=== PATIENT | male | born 1980 | race Caucasian/White ===

== ENCOUNTER 2021-09-30 20:19 | Inpatient (IN) ==
[~2021-09-30 20:19] MED LIST: THIAMINE HCL 100 MG in SYRINGE 9 ML IV SCH
[2021-09-30] MEDS ORDERED: MULTI-VITAMIN INFUSION 10 ML, THIAMINE HCL 100 MG, FOLIC ACID 1 MG in SODIUM CHLORIDE 0... IV ONE (20:46)
--- NOTE | 2021-09-30 20:46 | Emergency Department Note ---
Impression & Plan Alcohol withdrawal delirium, Elevated LFTs, Acute hyponatremia, Visual hallucinations ED Provider Note Name: JUSTINE STEEL Age: 41 Sex: M Arrives Via: Walk-In Informant: Patient, Brother ED Provider: Jimenez Monroy MD Chief Complaint: Hallucinations Impression: As per impressions above Medical Decision Makin-year-old gentleman with a history of hypothyroidism, anxiety/depression, alcoholism arrives for evaluation of increasing hallucinations over the last week or so. On evaluation patient does not appear significantly intoxicated I will note that his alcohol level returned elevated. He admits he drinks a large amount of vodka every day and has been doing so for quite some time now. CT of the head was obtained which is fortunately negative. Labs reveal mildly elevated LFTs but no elevated ammonia. His sodium is a bit low consistent with regular alcohol use. I am suspicious that he is hallucinating as his alcohol levels dropped and that he drinks something it goes away. That said just while being here patient is becoming more tachycardic and hypertensive. I feel he is likely getting near the point where he will have DTs/seizures and I stressed the need for helping him at which point he is willing to stay after considerable discussion with his brother at bedside as well. Initially patient was given a banana bag with thiamine. He was given Ativan later on in the stay. Hospitalist consulted for further management of patient. EKG does have a prolonged QTC with some abnormal ST however troponin is normal. Mag is a bit low. Prior Medical Record and Triage/Nursing Notes reviewed by Me Additional history obtained from chart Differentials:Alcohol intoxication, DTs, ICH, tumor, toxicologic, infection, hypoglycemia, electrolyte abnormalities, cardiac sources, intracerebral event, neurologic, trauma, as well as other pathologies. Vital Signs: reviewed and remarkable for HTN, Tachy Interventions: Banana bag 1 L IV, Ativan 2 mg IV Labs:Reviewed and remarkable for natremia, mildly elevated LFTs, elevated a lcohol level Imaging:CT of the head as per radiology no acute findings EKG:Per My Interpretation: Indication Hallucinations: Sinus Tach 104 bpm, qtc [address] abnormalities. No Ectopy. No Ischemia. No previous for comparison. Cardiac/Tele Monitoring: Cardiac Monitoring: An Order was placed for continuous cardiac monitoring. The monitor shows a rate of 105 with a sinus tach rhythm. Consults:Dr Sarah MARION Hospitalist Plan: Disposition:Hospitalization. Condition: Fair History of Present Illness:41-year-old gentleman arrives for evaluation of hallucinations. Patient with several weeks of increasing hallucinations. He seeing things that just are not there. From collars to children to people w alking around. He does note that at times he has to change what he is doing because he sees something and then its not there. He is even stopped his car suddenly because he thought he saw a car in front of them. Patient denies any headache, neck pain, chest pain, double vision, palpitations, shortness of breath, abdominal pain, back, urinary changes, diarrhea, leg swelling, or shows no other signs or symptoms. He does admit that he drinks about a third of a handle of vodka daily. This is been ongoing from last 10 years. It has been several years since he actually went a day without drinking. Denies any falls, trauma, injuries. Does periodically get headaches but does not not have any headache currently. Denies any drug ingestions. Denies any thing makes better or worse. No medications prior to arrival. No recent changes to his medications ROS: See above HPI for pertinent positives & negatives. A total of 10 systems reviewed and were otherwise negative. 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 EYES: No scleral icterus, unremarkable pupils. Mild jaundice to eyes ENT: Mucous membranes moist, no nasal congestion. NECK: No masses appreciated, nomeningismus, trachea is midline. RESPIRATORY: No dyspnea. Clear to auscultation and equal bilaterally. No wheeze, no rhonchi. CARDIOVASCULAR: Tachy.No murmurs, rubs, gallops appreciated. GASTROINTESTINAL: Abdomen soft, non-tender, no peritonitis.Bowel sounds positive.No masses appreciated. BACK: No midline tenderness, no CVA tenderness EXTREMITIES: Normal motion all extremities, no cyanosis, no edema. NEUROLOGIC: Alert and oriented, no acute motor or sensory deficits, no focal weakness, cranial nerves grossly intact. SKIN: No rash, no jaundice, no diaphoresis. PSYCH: Appropriate, denies suicidal ideation GCS: 15 ED Course: Times/Reassessments: Patient did start getting more and more tachycardic hypertensive thus Ativan was given. He is agreeable to staying a bit hesitant of this. Jimenez Monroy MD Past Med/Surg History Social History Smoking Status: Current every day smoker Preferred Language: Turkish Feels Safe at Home: Yes Allergies Allergies Allergy/AdvReac Type Severity Reaction Status Date / Time No Known Allergies Allergy Mild Unverified 06/06/07 19:11 Home Meds Home Medications Medication Instructions Recorded Confirmed None (Patient States No Home Meds) ##0 06/06/07 Results & Data (ED) Vital Signs Vital Signs - 24 hr 09/30/21 20:21 Temperature 36.5 C Temperature Source Temporal Artery Scan Pulse Rate 102 H Pulse Rhythm Regular Pulse Strength Normal Respiratory Rate 18 Respiratory Effort / Characteristics Non-Labored Spontaneous Respiratory Depth Normal Respiratory Pattern Regular Blood Pressure 162/121 H Blood Pressure Mean 134 Blood Pressure Position Sitting Pulse Oximetry 98 Oxygen Delivery Method Room Air Sepsis Recent Fever Within 48 Hours No Sepsis New/Unexplained Change in Mental Status N/A Sepsis Action Taken by Nursing No Action Required Laboratory Data Result diagrams: 09/30/21 21:18 09/30/21 23:35 Lab Results 09/30/21 09/30/21 09/30/21 Range/Units 21:18 21:18 21:18 WBC 6.87 (4.8-10.8) K/ul RBC 3.71 L (4.63-6.08) M/uL Hgb 14.3 (14.0-18.0) g/dl Hct 38.2 L (40.1-51.0) % MCV 103.0 H (80.0-100.0) fL MCH 38.5 H (25.0-34.0) pg MCHC 37.4 H (32.0-36.0) g/dL RDW Std Deviation 44.6 (36.4-46.3) fL RDW Coeff of Kirk 11.8 (11.5-14.5) % Plt Count 264 (130-400) K/uL MPV 9.3 L (9.4-12.4) fL Neutrophils % (Manual) 69 % Lymphocytes % (Manual) 23 % Monocytes % (Manual) 4 % Eosinophils % (Manual) 2 % Basophils % (Manual) 2 % Metamyelocytes % (Man) 1 % Neutrophils # (Manual) 4.74 (1.4-6.5) K/uL Total Absolute Neuts 4.74 (1.4-6.5) K/uL Lymphocytes # (Manual) 1.58 (1.2-3.4) K/uL Total Abs Lymphocytes 1.58 (1.2-3.4) K/uL Monocytes # (Manual) 0.27 (0.24-0.82) K/uL Eosinophils # (Manual) 0.14 (0-0.50) K/uL Basophils # (Manual) 0.14 (0-0.2) K/uL Metamyelocytes # (Man) 0.07 H (0-0) K/uL PT (9.0-12.0) Seconds INR (0.9-1.1) Sodium (136-145) mmol/L Potassium (3.5-5.1) mmol/L Chloride (98-107) mmol/L Carbon Dioxide (21-32) mmol/L Anion Gap (3-11) BUN (6-23) mg/dl Creatinine (0.6-1.4) mg/dl Est Cr Clr Drug Dosing ml/min Est GFR ( Amer) ml/min Est GFR (Non-Af Amer) ml/min BUN/Creatinine Ratio (10-20) Glucose (70-99(Fasting)) mg/dl Osmolality (280-300) mOsm/kg Lactate 3.0 H* (0.4-2.0) mmol/L Calcium (8.5-10.1) mg/dl Magnesium (1.7-2.4) mg/dl Total Bilirubin (0.2-1.0) mg/dl AST (13-39) U/L ALT (7-52) U/L Alkaline Phosphatase (34-104) U/L Ammonia 20.0 (18-72) umol/L Troponin I High Sens (0-20) pg/ml Total Protein (6.0-8.3) gm/dl Albumin (3.4-5.0) gm/dl Globulin (2.5-4.0) gm/dl Albumin/Globulin Ratio (0.9-2) TSH (0.300-4.500) uIu/ml Free T4 (0.61-1.60) ng/dl Urine Color Urine Appearance (Clear) Urine pH (4.5-7.5) Ur Specific [place] (1.000-1.030) Urine Protein (Negative) Urine Glucose (UA) (Negative) Urine Ketones (Negative) Urine Blood (Negative) Urine Nitrite (Negative) Urine Bilirubin (Negative) Urine Urobilinogen (Negative) Ur Leukocyte Esterase (Negative) Urine Osmolality (500-800) mOsm/kg Ur Random Sodium mmol/L Salicylates (3.0-30) mg/dl Urine Opiates Screen (Neg) Ur Methadone, Qual (Neg) Acetaminophen (10-30) ug/ml Urine Barbiturates (Neg) Ur Phencyclidine (PCP) (Neg) U Amphetamin/Meth Scrn (Neg) MDMA (Ecstasy) Screen (Neg) U Benzodiazepines Scrn (Neg) Ur Cocaine Metabolite (Neg) U Marijuana (THC) Screen (Neg) Ethyl Alcohol mg/dL (<10.0) mg/dl SARS-CoV-2, RNA, NAAT (NEGATIVE) 09/30/21 09/30/21 09/30/21 Range/Units 21:18 21:18 21:18 WBC (4.8-10.8) K/ul RBC (4.63-6.08) M/uL Hgb (14.0-18.0) g/dl Hct (40.1-51.0) % MCV (80.0-100.0) fL MCH (25.0-34.0) pg MCHC (32.0-36.0) g/dL RDW Std Deviation (36.4-46.3) fL RDW Coeff of Kirk (11.5-14.5) % Plt Count (130-400) K/uL MPV (9.4-12.4) fL Neutrophils % (Manual) % Lymphocytes % (Manual) % Monocytes % (Manual) % Eosinophils % (Manual) % Basophils % (Manual) % Metamyelocytes % (Man) % Neutrophils # (Manual) (1.4-6.5) K/uL Total Absolute Neuts (1.4-6.5) K/uL Lymphocytes # (Manual) (1.2-3.4) K/uL Total Abs Lymphocytes (1.2-3.4) K/uL Monocytes # (Manual) (0.24-0.82) K/uL Eosinophils # (Manual) (0-0.50) K/uL Basophils # (Manual) (0-0.2) K/uL Metamyelocytes # (Man) (0-0) K/uL PT (9.0-12.0) Seconds INR (0.9-1.1) Sodium 124 L (136-145) mmol/L Potassium 3.4 L (3.5-5.1) mmol/L Chloride 86 L (98-107) mmol/L Carbon Dioxide 24 (21-32) mmol/L Anion Gap 14 H (3-11) BUN 6 (6-23) mg/dl Creatinine 0.76 (0.6-1.4) mg/dl Est Cr Clr Drug Dosing 157.9 ml/min Est GFR ( Amer) 129.5 ml/min Est GFR (Non-Af Amer) 111.7 ml/min BUN/Creatinine Ratio 7.9 L (10-20) Glucose 85 (70-99(Fasting)) mg/dl Osmolality (280-300) mOsm/kg Lactate (0.4-2.0) mmol/L Calcium 9.8 (8.5-10.1) mg/dl Magnesium (1.7-2.4) mg/dl Total Bilirubin 1.1 H (0.2-1.0) mg/dl AST 52 H (13-39) U/L ALT 72 H (7-52) U/L Alkaline Phosphatase 54 (34-104) U/L Ammonia (18-72) umol/L Troponin I High Sens 2.8 (0-20) pg/ml Total Protein 7.4 (6.0-8.3) gm/dl Albumin 4.6 (3.4-5.0) gm/dl Globulin 2.8 (2.5-4.0) gm/dl Albumin/Globulin Ratio 1.6 (0.9-2) TSH 6.367 H (0.300-4.500) uIu/ml Free T4 1.31 (0.61-1.60) ng/dl Urine Color Urine Appearance (Clear) Urine pH (4.5-7.5) Ur Specific [place] (1.000-1.030) Urine Protein (Negative) Urine Glucose (UA) (Negative) Urine Ketones (Negative) Urine Blood (Negative) Urine Nitrite (Negative) Urine Bilirubin (Negative) Urine Urobilinogen (Negative) Ur Leukocyte Esterase (Negative) Urine Osmolality (500-800) mOsm/kg Ur Random Sodium mmol/L Salicylates < 3.0 L (3.0-30) mg/dl Urine Opiates Screen (Neg) Ur Methadone, Qual (Neg) Acetaminophen < 3 L (10-30) ug/ml Urine Barbiturates (Neg) Ur Phencyclidine (PCP) (Neg) U Amphetamin/Meth Scrn (Neg) MDMA (Ecstasy) Screen (Neg) U Benzodiazepines Scrn (Neg) Ur Cocaine Metabolite (Neg) U Marijuana (THC) Screen (Neg) Ethyl Alcohol mg/dL (<10.0) mg/dl SARS-CoV-2, RNA, NAAT (NEGATIVE) 09/30/21 09/30/21 09/30/21 Range/Units 21:18 21:18 21:18 WBC (4.8-10.8) K/ul RBC (4.63-6.08) M/uL Hgb (14.0-18.0) g/dl Hct (40.1-51.0) % MCV (80.0-100.0) fL MCH (25.0-34.0) pg MCHC (32.0-36.0) g/dL RDW Std Deviation (36.4-46.3) fL RDW Coeff of Kirk (11.5-14.5) % Plt Count (130-400) K/uL MPV (9.4-12.4) fL Neutrophils % (Manual) % Lymphocytes % (Manual) % Monocytes % (Manual) % Eosinophils % (Manual) % Basophils % (Manual) % Metamyelocytes % (Man) % Neutrophils # (Manual) (1.4-6.5) K/uL Total Absolute Neuts (1.4-6.5) K/uL Lymphocytes # (Manual) (1.2-3.4) K/uL Total Abs Lymphocytes (1.2-3.4) K/uL Monocytes # (Manual) (0.24-0.82) K/uL Eosinophils # (Manual) (0-0.50) K/uL Basophils # (Manual) (0-0.2) K/uL Metamyelocytes # (Man) (0-0) K/uL PT (9.0-12.0) Seconds INR (0.9-1.1) Sodium (136-145) mmol/L Potassium (3.5-5.1) mmol/L Chloride (98-107) mmol/L Carbon Dioxide (21-32) mmol/L Anion Gap (3-11) BUN (6-23) mg/dl Creatinine (0.6-1.4) mg/dl Est Cr Clr Drug Dosing ml/min Est GFR ( Amer) ml/min Est GFR (Non-Af Amer) ml/min BUN/Creatinine Ratio (10-20) Glucose (70-99(Fasting)) mg/dl Osmolality (280-300) mOsm/kg Lactate (0.4-2.0) mmol/L Calcium (8.5-10.1) mg/dl Magnesium (1.7-2.4) mg/dl Total Bilirubin (0.2-1.0) mg/dl AST (13-39) U/L ALT (7-52) U/L Alkaline Phosphatase (34-104) U/L Ammonia (18-72) umol/L Troponin I High Sens (0-20) pg/ml Total Protein (6.0-8.3) gm/dl Albumin (3.4-5.0) gm/dl Globulin (2.5-4.0) gm/dl Albumin/Globulin Ratio (0.9-2) TSH (0.300-4.500) uIu/ml Free T4 (0.61-1.60) ng/dl Urine Color Yellow Urine Appearance Clear (Clear) Urine pH 6.5 (4.5-7.5) Ur Specific [place] 1.004 (1.000-1.030) Urine Protein Negative (Negative) Urine Glucose (UA) Negative (Negative) Urine Ketones Trace H (Negative) Urine Blood Negative (Negative) Urine Nitrite Negative (Negative) Urine Bilirubin Negative (Negative) Urine Urobilinogen Negative (Negative) Ur Leukocyte Esterase Negative (Negative) Urine Osmolality (500-800) mOsm/kg Ur Random Sodium mmol/L Salicylates (3.0-30) mg/dl Urine Opiates Screen Neg (Neg) Ur Methadone, Qual Neg (Neg) Acetaminophen (10-30) ug/ml Urine Barbiturates Neg (Neg) Ur Phencyclidine (PCP) Neg (Neg) U Amphetamin/Meth Scrn Neg (Neg) MDMA (Ecstasy) Screen Neg (Neg) U Benzodiazepines Scrn Neg (Neg) Ur Cocaine Metabolite Neg (Neg) U Marijuana (THC) Screen Neg (Neg) Ethyl Alcohol mg/dL 215.9 H (<10.0) mg/dl SARS-CoV-2, RNA, NAAT (NEGATIVE) 09/30/21 09/30/21 09/30/21 Range/Units 21:18 21:18 21:18 WBC (4.8-10.8) K/ul RBC (4.63-6.08) M/uL Hgb (14.0-18.0) g/dl Hct (40.1-51.0) % MCV (80.0-100.0) fL MCH (25.0-34.0) pg MCHC (32.0-36.0) g/dL RDW Std Deviation (36.4-46.3) fL RDW Coeff of Kirk (11.5-14.5) % Plt Count (130-400) K/uL MPV (9.4-12.4) fL Neutrophils % (Manual) % Lymphocytes % (Manual) % Monocytes % (Manual) % Eosinophils % (Manual) % Basophils % (Manual) % Metamyelocytes % (Man) % Neutrophils # (Manual) (1.4-6.5) K/uL Total Absolute Neuts (1.4-6.5) K/uL Lymphocytes # (Manual) (1.2-3.4) K/uL Total Abs Lymphocytes (1.2-3.4) K/uL Monocytes # (Manual) (0.24-0.82) K/uL Eosinophils # (Manual) (0-0.50) K/uL Basophils # (Manual) (0-0.2) K/uL Metamyelocytes # (Man) (0-0) K/uL PT 10.8 (9.0-12.0) Seconds INR 1.0 (0.9-1.1) Sodium (136-145) mmol/L Potassium (3.5-5.1) mmol/L Chloride (98-107) mmol/L Carbon Dioxide (21-32) mmol/L Anion Gap (3-11) BUN (6-23) mg/dl Creatinine (0.6-1.4) mg/dl Est Cr Clr Drug Dosing ml/min Est GFR ( Amer) ml/min Est GFR (Non-Af Amer) ml/min BUN/Creatinine Ratio (10-20) Glucose (70-99(Fasting)) mg/dl Osmolality 311 H (280-300) mOsm/kg Lactate (0.4-2.0) mmol/L Calcium (8.5-10.1) mg/dl Magnesium 1.5 L (1.7-2.4) mg/dl Total Bilirubin (0.2-1.0) mg/dl AST (13-39) U/L ALT (7-52) U/L Alkaline Phosphatase (34-104) U/L Ammonia (18-72) umol/L Troponin I High Sens (0-20) pg/ml Total Protein (6.0-8.3) gm/dl Albumin (3.4-5.0) gm/dl Globulin (2.5-4.0) gm/dl Albumin/Globulin Ratio (0.9-2) TSH (0.300-4.500) uIu/ml Free T4 (0.61-1.60) ng/dl Urine Color Urine Appearance (Clear) Urine pH (4.5-7.5) Ur Specific [place] (1.000-1.030) Urine Protein (Negative) Urine Glucose (UA) (Negative) Urine Ketones (Negative) Urine Blood (Negative) Urine Nitrite (Negative) Urine Bilirubin (Negative) Urine Urobilinogen (Negative) Ur Leukocyte Esterase (Negative) Urine Osmolality (500-800) mOsm/kg Ur Random Sodium mmol/L Salicylates (3.0-30) mg/dl Urine Opiates Screen (Neg) Ur Methadone, Qual (Neg) Acetaminophen (10-30) ug/ml Urine Barbiturates (Neg) Ur Phencyclidine (PCP) (Neg) U Amphetamin/Meth Scrn (Neg) MDMA (Ecstasy) Screen (Neg) U Benzodiazepines Scrn (Neg) Ur Cocaine Metabolite (Neg) U Marijuana (THC) Screen (Neg) Ethyl Alcohol mg/dL (<10.0) mg/dl SARS-CoV-2, RNA, NAAT (NEGATIVE) 09/30/21 09/30/21 09/30/21 Range/Units 21:18 21:18 23:30 WBC (4.8-10.8) K/ul RBC (4.63-6.08) M/uL Hgb (14.0-18.0) g/dl Hct (40.1-51.0) % MCV (80.0-100.0) fL MCH (25.0-34.0) pg MCHC (32.0-36.0) g/dL RDW Std Deviation (36.4-46.3) fL RDW Coeff of Kirk (11.5-14.5) % Plt Count (130-400) K/uL MPV (9.4-12.4) fL Neutrophils % (Manual) % Lymphocytes % (Manual) % Monocytes % (Manual) % Eosinophils % (Manual) % Basophils % (Manual) % Metamyelocytes % (Man) % Neutrophils # (Manual) (1.4-6.5) K/uL Total Absolute Neuts (1.4-6.5) K/uL Lymphocytes # (Manual) (1.2-3.4) K/uL Total Abs Lymphocytes (1.2-3.4) K/uL Monocytes # (Manual) (0.24-0.82) K/uL Eosinophils # (Manual) (0-0.50) K/uL Basophils # (Manual) (0-0.2) K/uL Metamyelocytes # (Man) (0-0) K/uL PT (9.0-12.0) Seconds INR (0.9-1.1) Sodium (136-145) mmol/L Potassium (3.5-5.1) mmol/L Chloride (98-107) mmol/L Carbon Dioxide (21-32) mmol/L Anion Gap (3-11) BUN (6-23) mg/dl Creatinine (0.6-1.4) mg/dl Est Cr Clr Drug Dosing ml/min Est GFR ( Amer) ml/min Est GFR (Non-Af Amer) ml/min BUN/Creatinine Ratio (10-20) Glucose (70-99(Fasting)) mg/dl Osmolality (280-300) mOsm/kg Lactate (0.4-2.0) mmol/L Calcium (8.5-10.1) mg/dl Magnesium (1.7-2.4) mg/dl Total Bilirubin (0.2-1.0) mg/dl AST (13-39) U/L ALT (7-52) U/L Alkaline Phosphatase (34-104) U/L Ammonia (18-72) umol/L Troponin I High Sens (0-20) pg/ml Total Protein (6.0-8.3) gm/dl Albumin (3.4-5.0) gm/dl Globulin (2.5-4.0) gm/dl Albumin/Globulin Ratio (0.9-2) TSH (0.300-4.500) uIu/ml Free T4 (0.61-1.60) ng/dl Urine Color Urine Appearance (Clear) Urine pH (4.5-7.5) Ur Specific [place] (1.000-1.030) Urine Protein (Negative) Urine Glucose (UA) (Negative) Urine Ketones (Negative) Urine Blood (Negative) Urine Nitrite (Negative) Urine Bilirubin (Negative) Urine Urobilinogen (Negative) Ur Leukocyte Esterase (Negative) Urine Osmolality 133 L (500-800) mOsm/kg Ur Random Sodium 16 mmol/L Salicylates (3.0-30) mg/dl Urine Opiates Screen (Neg) Ur Methadone, Qual (Neg) Acetaminophen (10-30) ug/ml Urine Barbiturates (Neg) Ur Phencyclidine (PCP) (Neg) U Amphetamin/Meth Scrn (Neg) MDMA (Ecstasy) Screen (Neg) U Benzodiazepines Scrn (Neg) Ur Cocaine Metabolite (Neg) U Marijuana (THC) Screen (Neg) Ethyl Alcohol mg/dL (<10.0) mg/dl SARS-CoV-2, RNA, NAAT NEGATIVE (NEGATIVE) 09/30/21 09/30/21 Range/Units 23:35 23:35 WBC (4.8-10.8) K/ul RBC (4.63-6.08) M/uL Hgb (14.0-18.0) g/dl Hct (40.1-51.0) % MCV (80.0-100.0) fL MCH (25.0-34.0) pg MCHC (32.0-36.0) g/dL RDW Std Deviation (36.4-46.3) fL RDW Coeff of Kirk (11.5-14.5) % Plt Count (130-400) K/uL MPV (9.4-12.4) fL Neutrophils % (Manual) % Lymphocytes % (Manual) % Monocytes % (Manual) % Eosinophils % (Manual) % Basophils % (Manual) % Metamyelocytes % (Man) % Neutrophils # (Manual) (1.4-6.5) K/uL Total Absolute Neuts (1.4-6.5) K/uL Lymphocytes # (Manual) (1.2-3.4) K/uL Total Abs Lymphocytes (1.2-3.4) K/uL Monocytes # (Manual) (0.24-0.82) K/uL Eosinophils # (Manual) (0-0.50) K/uL Basophils # (Manual) (0-0.2) K/uL Metamyelocytes # (Man) (0-0) K/uL PT (9.0-12.0) Seconds INR (0.9-1.1) Sodium 127 L (136-145) mmol/L Potassium (3.5-5.1) mmol/L Chloride (98-107) mmol/L Carbon Dioxide (21-32) mmol/L Anion Gap (3-11) BUN (6-23) mg/dl Creatinine (0.6-1.4) mg/dl Est Cr Clr Drug Dosing ml/min Est GFR ( Amer) ml/min Est GFR (Non-Af Amer) ml/min BUN/Creatinine Ratio (10-20) Glucose (70-99(Fasting)) mg/dl Osmolality (280-300) mOsm/kg Lactate 2.6 H* (0.4-2.0) mmol/L Calcium (8.5-10.1) mg/dl Magnesium (1.7-2.4) mg/dl Total Bilirubin (0.2-1.0) mg/dl AST (13-39) U/L ALT (7-52) U/L Alkaline Phosphatase (34-104) U/L Ammonia (18-72) umol/L Troponin I High Sens (0-20) pg/ml Total Protein (6.0-8.3) gm/dl Albumin (3.4-5.0) gm/dl Globulin (2.5-4.0) gm/dl Albumin/Globulin Ratio (0.9-2) TSH (0.300-4.500) uIu/ml Free T4 (0.61-1.60) ng/dl Urine Color Urine Appearance (Clear) Urine pH (4.5-7.5) Ur Specific [place] (1.000-1.030) Urine Protein (Negative) Urine Glucose (UA) (Negative) Urine Ketones (Negative) Urine Blood (Negative) Urine Nitrite (Negative) Urine Bilirubin (Negative) Urine Urobilinogen (Negative) Ur Leukocyte Esterase (Negative) Urine Osmolality (500-800) mOsm/kg Ur Random Sodium mmol/L Salicylates (3.0-30) mg/dl Urine Opiates Screen (Neg) Ur Methadone, Qual (Neg) Acetaminophen (10-30) ug/ml Urine Barbiturates (Neg) Ur Phencyclidine (PCP) (Neg) U Amphetamin/Meth Scrn (Neg) MDMA (Ecstasy) Screen (Neg) U Benzodiazepines Scrn (Neg) Ur Cocaine Metabolite (Neg) U Marijuana (THC) Screen (Neg) Ethyl Alcohol mg/dL (<10.0) mg/dl SARS-CoV-2, RNA, NAAT (NEGATIVE) Administered Medications Discontinued Medications Famotidine (Famotidine 20 Mg Tab) 20 mg PO NOW ONE Stop: 09/30/21 23:01 Last Admin: 09/30/21 23:13 Dose: 20 mg Documented By: EVIE Gabapentin (Gabapentin 600 Mg Tab) 1,200 mg PO NOW STA Stop: 09/30/21 23:00 Last Admin: 09/30/21 23:13 Dose: 1,200 mg Documented By: EVIE Multivitamins 10 ml/ Thiamine HCl 100 mg/ Folic Acid 1 mg/Sodium Chloride 1,011.2 mls @ 1,011.2 mls/hr IV .Q1H ONE Stop: 09/30/21 21:45 Last Infusion: 09/30/21 23:18 Dose: 0 mls/hr Documented By: Admin: 09/30/21 22:06 Dose: 1,011.2 mls/hr Documented By: EVIE Thiamine HCl 100 mg/ Syringe 10 mls @ 2 mls/min IV QAM NAVARRO Stop: 10/30/21 08:59 Last Admin: 09/30/21 23:19 Dose: Not Given Documented By: EVIE Lisinopril (Lisinopril 20 Mg Tab) 20 mg PO NOW STA Stop: 09/30/21 22:35 Last Admin: 09/30/21 23:07 Dose: Not Given Documented By: EVIE Lorazepam (Lorazepam 2 Mg/1 Ml Vial) 2 mg IV NOW STA; Protocol Stop: 09/30/21 22:21 Last Admin: 09/30/21 23:12 Dose: 2 mg Documented By: EVIE Potassium Chloride (Potassium Chloride Crtab 20 Meq Tabcr) 40 meq PO NOW STA Stop: 09/30/21 22:33 Last Admin: 09/30/21 23:13 Dose: 40 meq Documented By: EVIE Discharge Plan Visit Data Chief Complaint: Visual Disturbance Stated Complaint: VISUAL DISTURBANCE, BLACK SPOTS/LINES ED Provider: Manuel Burgess Discharge Problem: Alcohol withdrawal delirium, Elevated LFTs, Acute hyponatremia, Visual hallucinations Forms Stand Alone Forms: [facility] Ansible Prescriptions Prescriptions: No Action None (Patient States No Home Meds) . Qty: 0 Referrals Referrals: Alex Horn MD [Physician] -
[2021-09-30 21:44] LABS: Appearance Urine Clear (Clear); Bilirubin Urine Negative (Negative); Blood Urine Negative (Negative); Color Urine Yellow; Glucose Urine UA Negative (Negative); Ketones Urine Trace (Negative); Leukocyte Esterase Urine Negative (Negative); Nitrite Urine Negative (Negative); Protein Urine Negative (Negative); Specific Gravity Urine 1.004 (1.000-1.030); Urobilinogen Urine Negative (Negative); pH Urine 6.5 (4.5-7.5)
[2021-09-30 21:57] LABS: ALC (manual) 1.58 K/uL (1.2-3.4); ANC (manual) 4.74 K/uL (1.4-6.5); Basophils # (manual) 0.14 K/uL (0-0.2); Basophils % (manual) 2 %; Eosinophils # (manual) 0.14 K/uL (0-0.50); Eosinophils % (manual) 2 %; Hematocrit (blood only) 38.2 % (40.1-51.0); Hemoglobin 14.3 g/dl (14.0-18.0); Lymphocytes # (manual) 1.58 K/uL (1.2-3.4); Lymphocytes % (manual) 23 %; Mean Corpuscular Hemoglobin 38.5 pg (25.0-34.0); Mean Corpuscular Hgb Conc 37.4 g/dL (32.0-36.0); Mean Platelet Volume 9.3 fL (9.4-12.4); Metamyelocytes # (manual) 0.07 K/uL (0-0); Metamyelocytes % (manual) 1 %; Monocytes # (manual) 0.27 K/uL (0.24-0.82); Monocytes % (manual) 4 %; Neutrophils # (manual) 4.74 K/uL (1.4-6.5); Neutrophils % (manual) 69 %; Platelet Count 264 K/uL (130-400); RDW Coefficient of Variation 11.8 % (11.5-14.5); RDW Standard Deviation 44.6 fL (36.4-46.3); Red Blood Count 3.71 M/uL (4.63-6.08); White Blood Count 6.87 K/ul (4.8-10.8)
[2021-09-30 22:01] LABS: Acetaminophen < 3 ug/ml (10-30); Salicylate < 3.0 mg/dl (3.0-30)
[2021-09-30 22:03] LABS: Amphetamines+Metham, Urine Neg (Neg); Barbiturates, Urine Neg (Neg); Benzodiazepine, Urine Neg (Neg); Cocaine, Urine Neg (Neg); MDMA (Ecstacy), Urine Neg (Neg); Methadone, Urine Neg (Neg); Opiate, Urine Neg (Neg); Phencyclidine, Urine Neg (Neg)
[2021-09-30 22:06] LABS: Troponin I High Sensitivity 2.8 pg/ml (0-20)
[2021-09-30 22:07] LABS: Albumin Globulin Ratio 1.6 (0.9-2); Albumin Level 4.6 gm/dl (3.4-5.0); BUN Creatinine Ratio 7.9 (10-20); Bilirubin,Total 1.1 mg/dl (0.2-1.0); Calcium 9.8 mg/dl (8.5-10.1); Creatinine Clr Calc Pharmacy 157.9 ml/min; Est GFR (African American) 129.5 ml/min; Est GFR (Non-African American) 111.7 ml/min; Globulin 2.8 gm/dl (2.5-4.0); Potassium 3.4 mmol/L (3.5-5.1); Total Protein 7.4 gm/dl (6.0-8.3)
[2021-09-30 22:14] LABS: Thyroid Stimulating Hormone 6.367 uIu/ml (0.300-4.500)
[2021-09-30] MEDS ORDERED: LORazepam 2 MG/1 ML VIAL IV STA (22:20)
[2021-09-30] MEDS ORDERED: POTASSIUM CHLORIDE CRTAB 20 MEQ TABCR PO STA (22:32)
[2021-09-30] MEDS ORDERED: lisinopril 20 MG TAB PO STA (22:34)
--- NOTE | 2021-09-30 22:40 | History & Physical Report ---
Date of Service September 30, 2021 Assessment & Plan (1) Acute hyponatremia: Plan: Multifactorial : Alcohol abuse Mild clinical dehydration given ketonuria Visual hallucinations Possible alcohol withdrawal hypertension, initially elevated upon arrival at the ER GERD, stable on regimen anxiety/mood disorder, at baseline post surgical hypothyroidism, TSH slightly elevated Hypokalemia secondary to poor p.o. intake ongoing tobacco abuse Medical telemetry Careful correction of sodium Recheck serum sodium after initial fluid bolus given at the ER Hyponatremia work-up May need Nephrology input CHARLIE S, DT precautions Hold bupropion for now given propensity for alcohol withdrawal seizures especially with hyponatremia replace electrolytes Nicotine patch as needed DVT prophylaxis Lovenox subcu Full code Text document was generated using [employer] voice recognition software. It may contain grammatical or spelling errors. Kindly contact undersigned for clarification of any documentation item in question. History of Present Illness Chief Complaint: Visual hallucinations Primary Care Provider: Lamine Gan MD History obtained from patient, family, and records. Medical history significant for hypertension, GERD, anxiety/mood disorder, post surgical hypothyroidism, ongoing tobacco/alcohol abuse. 2 days ago, patient noted worsening visual hallucinations. Patient describes seeing black lines, 'squigglies' people walking around. No headache, no chest pain, no SOB. No prior history of alcohol withdrawal seizures. Poor appetite the last few days. Patient brought by brother to emergency room for evaluation. IV Ativan and banana bag administered for alcohol withdrawal. Patient feeling much better after initial ER intervention. Medical History as above Surgical History : Dental surgery, thyroid lobectomy, LASIK eye surgery, palatal repair Family History : Lung cancer, breast cancer, heart disease Personal/Social history : Cigar use, alcohol abuse, computer technician Allergies Allergy/AdvReac Type Severity Reaction Status Date / Time No Known Allergies Allergy Mild Unverified 06/06/07 19:11 Home Medications Medication Instructions Recorded Confirmed Type Wellbutrin XL 150 mg PO DAILY 10/01/21 10/01/21 History Zantac-360 (famotidine) 1 tab PO BID 10/01/21 10/01/21 History cetirizine 10 mg PO HS 10/01/21 10/01/21 History levothyroxine 100 mcg PO DAILY 10/01/21 10/01/21 History lisinopril 20 mg PO DAILY 10/01/21 10/01/21 History trazodone 50 mg PO HS PRN Insomnia 10/01/21 10/01/21 History Past Med/Surg History Social History Smoking Status: Current every day smoker Preferred Language: Bahamian Feels Safe at Home: Yes Review of Systems Review of Systems: As per HPI, all other systems reviewed and negative Physical Exam Physical Exam: GENERAL: Comfortable, slightly anxious, no respiratory distress SKIN: Normal color, warm HEENT: [place] palpebral conjunctivae, no ptosis, dry buccal mucosa NECK : Supple, no tenderness CHEST : CTA, no tenderness HEART : RRR, no obvious murmurs ABDOMEN: Some distention, nontender EXTREMITIES : No LE swelling/tenderness, no other conspicuous deformities noted NEUROLOGIC : Coherent, no facial asymmetry, no other gross focality Results & Data Results & Data ([facility]) Vital Signs (Past 12 Hours) Vital Signs Temp Pulse Resp BP Pulse Ox O2 Del Method 09/30/21 20:21 36.5 C 102 H 18 162/121 H 98 Room Air Laboratory Results Laboratory Results WBC 6.87 K/ul (4.8-10.8) 09/30/21 21:18 RBC 3.71 M/uL (4.63-6.08) L 09/30/21 21:18 Hgb 14.3 g/dl (14.0-18.0) 09/30/21 21:18 Hct 38.2 % (40.1-51.0) L 09/30/21 21:18 MCV 103.0 fL (80.0-100.0) H 09/30/21 21:18 MCH 38.5 pg (25.0-34.0) H 09/30/21 21:18 MCHC 37.4 g/dL (32.0-36.0) H 09/30/21 21:18 RDW Std Deviation 44.6 fL (36.4-46.3) 09/30/21 21:18 RDW Coeff of Kirk 11.8 % (11.5-14.5) 09/30/21 21:18 Plt Count 264 K/uL (130-400) 09/30/21 21:18 MPV 9.3 fL (9.4-12.4) L 09/30/21 21:18 Neutrophils % (Manual) 69 % 09/30/21 21:18 Lymphocytes % (Manual) 23 % 09/30/21 21:18 Monocytes % (Manual) 4 % 09/30/21 21:18 Eosinophils % (Manual) 2 % 09/30/21 21:18 Basophils % (Manual) 2 % 09/30/21 21:18 Metamyelocytes % (Man) 1 % 09/30/21 21:18 Neutrophils # (Manual) 4.74 K/uL (1.4-6.5) 09/30/21 21:18 Total Absolute Neuts 4.74 K/uL (1.4-6.5) 09/30/21 21:18 Lymphocytes # (Manual) 1.58 K/uL (1.2-3.4) 09/30/21 21:18 Total Abs Lymphocytes 1.58 K/uL (1.2-3.4) 09/30/21 21:18 Monocytes # (Manual) 0.27 K/uL (0.24-0.82) 09/30/21 21:18 Eosinophils # (Manual) 0.14 K/uL (0-0.50) 09/30/21 21:18 Basophils # (Manual) 0.14 K/uL (0-0.2) 09/30/21 21:18 Metamyelocytes # (Man) 0.07 K/uL (0-0) H 09/30/21 21:18 Sodium 124 mmol/L (136-145) L 09/30/21 21:18 Potassium 3.4 mmol/L (3.5-5.1) L 09/30/21 21:18 Chloride 86 mmol/L (98-107) L 09/30/21 21:18 Carbon Dioxide 24 mmol/L (21-32) 09/30/21 21:18 Anion Gap 14 (3-11) H 09/30/21 21:18 BUN 6 mg/dl (6-23) 09/30/21 21:18 Creatinine 0.76 mg/dl (0.6-1.4) 09/30/21 21:18 Est Cr Clr Drug Dosing 157.9 ml/min 09/30/21 21:18 Est GFR ( Amer) 129.5 ml/min 09/30/21 21:18 Est GFR (Non-Af Amer) 111.7 ml/min 09/30/21 21:18 BUN/Creatinine Ratio 7.9 (10-20) L 08/14/22 21:18 Glucose 85 mg/dl (70-99(Fasting)) 09/30/21 21:18 Lactate 3.0 mmol/L (0.4-2.0) H* 09/30/21 21:18 Calcium 9.8 mg/dl (8.5-10.1) 09/30/21 21:18 Total Bilirubin 1.1 mg/dl (0.2-1.0) H 09/30/21 21:18 AST 52 U/L (13-39) H 09/30/21 21:18 ALT 72 U/L (7-52) H 09/30/21 21:18 Alkaline Phosphatase 54 U/L (34-104) 09/30/21 21:18 Ammonia 20.0 umol/L (18-72) 09/30/21 21:18 Troponin I High Sens 2.8 pg/ml (0-20) 09/30/21 21:18 Total Protein 7.4 gm/dl (6.0-8.3) 09/30/21 21:18 Albumin 4.6 gm/dl (3.4-5.0) 09/30/21 21:18 Globulin 2.8 gm/dl (2.5-4.0) 09/30/21 21:18 Albumin/Globulin Ratio 1.6 (0.9-2) 09/30/21 21:18 TSH 6.367 uIu/ml (0.300-4.500) H 09/30/21 21:18 Urine Color Yellow 09/30/21 21:18 Urine Appearance Clear (Clear) 09/30/21 21:18 Urine pH 6.5 (4.5-7.5) 09/30/21 21:18 Ur Specific [place] 1.004 (1.000-1.030) 09/30/21 21:18 Urine Protein Negative (Negative) 09/30/21 21:18 Urine Glucose (UA) Negative (Negative) 09/30/21 21:18 Urine Ketones Trace (Negative) H 09/30/21 21:18 Urine Blood Negative (Negative) 09/30/21 21:18 Urine Nitrite Negative (Negative) 09/30/21 21:18 Urine Bilirubin Negative (Negative) 09/30/21 21:18 Urine Urobilinogen Negative (Negative) 09/30/21 21:18 Ur Leukocyte Esterase Negative (Negative) 09/30/21 21:18 Salicylates < 3.0 mg/dl (3.0-30) L 09/30/21 21:18 Urine Opiates Screen Neg (Neg) 09/30/21 21:18 Ur Methadone, Qual Neg (Neg) 09/30/21 21:18 Acetaminophen < 3 ug/ml (10-30) L 09/30/21 21:18 Urine Barbiturates Neg (Neg) 09/30/21 21:18 Ur Phencyclidine (PCP) Neg (Neg) 09/30/21 21:18 U Amphetamin/Meth Scrn Neg (Neg) 09/30/21 21:18 MDMA (Ecstasy) Screen Neg (Neg) 09/30/21 21:18 U Benzodiazepines Scrn Neg (Neg) 09/30/21 21:18 Ur Cocaine Metabolite Neg (Neg) 09/30/21 21:18 U Marijuana (THC) Screen Neg (Neg) 09/30/21 21:18 Ethyl Alcohol mg/dL 215.9 mg/dl (<10.0) H 09/30/21 21:[address] head initial read : normal head CT. Chest x-ray as per my interpretation borderline cardiomegaly EKG as per my interpretation : Rate 105, sinus tachycardia, normal axis, T wave abnormality septal leads
[2021-09-30 22:46] LABS: T4 Free Thyroxine 1.31 ng/dl (0.61-1.60)
[2021-09-30 22:51] LABS: Prothrombin Time 10.8 Seconds (9.0-12.0)
[2021-09-30] MEDS ORDERED: GABAPENTIN 600 MG TAB PO STA (22:59)
[2021-09-30] MEDS ORDERED: FAMOTIDINE 20 MG TAB PO ONE (23:00)
[2021-09-30] MEDS ORDERED: LORazepam 1 MG in SYRINGE 0.5 ML IV PRN (23:11)
[2021-09-30] MEDS ORDERED: Ativan IV Alcohol Withdrawal--Active Protocol IV PRN (23:11)
[2021-09-30] MEDS ORDERED: LORazepam 3 MG in SYRINGE 1.5 ML IV PRN (23:11)
[2021-09-30] MEDS ORDERED: GABAPENTIN 1200MG ALCOHOL WITHDRAWAL LOAD PO STA (23:11)
[2021-09-30] MEDS ORDERED: LORazepam 2 MG in SYRINGE 1 ML IV PRN (23:11)
[2021-10-01] MEDS: MAGNESIUM SULFATE / D5W 1 GM/100 ML BAG IV SCH ×2 (00:44→05:05)
[2021-10-01] MEDS ORDERED: oxyCODONE HCL IR 5 MG TAB (IMMEDIATE RELEASE) PO PRN (01:00)
[2021-10-01] MEDS ORDERED: PROMETHAZINE HCL 12.5 MG in SODIUM CHLORIDE 0.9% 50 ML IV PRN (01:00)
[2021-10-01] MEDS ORDERED: ALBUMIN 25% 100 mL 25 GM/100 ML VIAL IV ONE (01:05)
[2021-10-01] MEDS: GABAPENTIN 600 MG TAB PO SCH ×3 (05:25→19:55)
[2021-10-01 05:28] LABS: Basophils # (auto) 0.04 K/uL (0-0.2); Basophils % (auto) 0.8 %; Eosinophils % (auto) 2.1 %; Hematocrit (blood only) 33.2 % (40.1-51.0); Hemoglobin 12.6 g/dl (14.0-18.0); Immature Granulocytes # (auto) 0.01 K/uL (0.00-0.02); Immature Granulocytes % (auto) 0.2 %; Lymphocytes # (auto) 1.59 K/uL (1.2-3.4); Lymphocytes % (auto) 33.5 %; Mean Corpuscular Hemoglobin 39.7 pg (25.0-34.0); Mean Corpuscular Volume 104.7 fL (80.0-100.0); Mean Platelet Volume 9.1 fL (9.4-12.4); Monocytes # (auto) 0.52 K/uL (0.24-0.82); Neutrophils # (auto) 2.48 K/uL (1.4-6.5); Neutrophils % (auto) 52.4 %; Platelet Count 202 K/uL (130-400); RDW Coefficient of Variation 11.8 % (11.5-14.5); RDW Standard Deviation 45.4 fL (36.4-46.3); Red Blood Count 3.17 M/uL (4.63-6.08); White Blood Count 4.74 K/ul (4.8-10.8)
[2021-10-01 05:54] LABS: Albumin Globulin Ratio 1.8 (0.9-2); Albumin Level 4.4 gm/dl (3.4-5.0); BUN Creatinine Ratio 5.4 (10-20); Bilirubin,Total 1.4 mg/dl (0.2-1.0); Calcium 9.6 mg/dl (8.5-10.1); Creatinine Clr Calc Pharmacy 130.5 ml/min; Est GFR (African American) 117.6 ml/min; Est GFR (Non-African American) 101.5 ml/min; Globulin 2.4 gm/dl (2.5-4.0); Potassium 4.1 mmol/L (3.5-5.1); Total Protein 6.8 gm/dl (6.0-8.3)
[2021-10-01] MEDS ORDERED: ALBUMIN 25% 12.5 GM/50 ML VIAL IV ONE (06:21)
--- NOTE | 2021-10-01 07:17 | CT Scan Report ---
CT SCAN OF THE BRAIN WITHOUT IV CONTRAST CLINICAL HISTORY: Hallucinations. COMPARISON STUDY: No priors. TECHNIQUE: Unenhanced axial CT scan of the brain is performed from the vertex to the skull base. A d ose lowering technique was utilized adhering to the principles of ALARA. CT DOSE: 537.48 mGy.cm FINDINGS: Brain parenchyma: The brain parenchyma is normal in appearance. There is no hemorrhage, mass effect, or evidence of acute territorial ischemia by CT criteria. Aparicio-white matter differentiation is preser conner. No extra-axial fluid collection is seen. Ventricles, sulci, cisterns: Normal in configuration. Intracranial vasculature: The visualized intracranial vasculature at the skull base is normal in appe arance. Calvarium: Unremarkable. Sinuses and mastoids: The visualized paranasal sinuses are clear. The mastoid air cells are well pneu matized. Orbits: The bony orbits are grossly intact. IMPRESSION: No acute intracranial abnormality. ACT 112: Negative or not required by law. Electronically signed by: Enrique Velasquez M.D. 10/01/2021 7:16 AM
--- NOTE | 2021-10-01 07:42 | XRay Report ---
XR chest 1V portable HISTORY: 41 years-old Male hyponatremia COMPARISON: None TECHNIQUE: Portable AP view of the chest FINDINGS: Cardiac silhouette is upper limits of normal in size. No pneumothorax, pleural effusion, airspace con solidation or overt pulmonary edema. Bones of the chest appear grossly intact. IMPRESSION: No acute process. ACT 112: Negative or not required by law. The above report was generated using voice recognition software. It may contain grammatical, syntax o r spelling errors. Electronically signed by: Stanley Miramontes M.D. 10/01/2021 7:41 AM
[2021-10-01] MEDS: LEVOTHYROXINE SODIUM 100 MCG TABLET PO SCH (08:16)
[2021-10-01] MEDS: FOLIC ACID 1 MG TAB PO SCH (08:49)
[2021-10-01] MEDS: THIAMINE HCL 100 MG TAB PO SCH (08:49)
[2021-10-01] MEDS: FAMOTIDINE 20 MG TAB PO SCH ×2 (08:49→19:59)
[2021-10-01] MEDS: ENOXAPARIN INJ 40 MG/0.4 ML SYR SQ SCH (08:49)
[2021-10-01] MEDS: MULTIVITAMIN TAB PO SCH (08:55)
[2021-10-01] MEDS ORDERED: lisinopril 10 MG TAB PO SCH (09:00)
--- NOTE | 2021-10-01 09:25 | Electrocardiogram Report ---
Test Reason : Blood Pressure : / mmHG Vent. Rate : 104 BPM Atrial Rate : 104 BPM P-R Int : 140 ms QRS Dur : 104 ms QT Int : 416 ms P-R-T Axes : 048 027 047 degrees QTc Int : 547 ms Poor data quality, interpretation may be adversely affected Sinus tachycardia Cannot rule out Inferior infarct , age undetermined Abnormal ECG No previous ECGs available Confirmed by Juan Loya ([id number]) on 10/01/2021 9:24:51 AM Referred By: REFERRED SELF Confirmed By:Juan Loya
--- NOTE | 2021-10-01 16:08 | Hospitalist Progress Note ---
Date of Service October 01, 2021 Assessment & Plan (1) Acute hyponatremia: Plan: Alcohol abuse disorder Presents with visual hallucinations likely secondary to alcohol withdrawal/Intoxication Admits to drinking vodka on daily basis Denies any symptoms suggestive of migraine --CT head:No acute intracranial abnormality. Monitor for alcohol withdrawal Counseled to quit drinking Continue on gabapentin protocol Continue thiamine, folic acid Acute hyponatremia Likely multifactorial: Alcohol use, polydipsia Sodium:127>129 Monitor sodium levels Hypertension Continue lisinopril GERD Continue home meds Mood disorder On Wellbutrin Resume as able Hypothyroidism S/P thyroid surgery Elevated TSH, normal free T4 Continue levothyroxine Needs outpatient repeat thyroid function test Hypokalemia Replace as needed Ongoing tobacco abuse Counseled to quit DVT Px: Lovenox SQ Code status Full code Admission and Anticipated Discharge Date Admission Date: September 30, 2021 Subjective Patient is seen and examined at bedside States having visual hallucinations Denies any chest pain, shortness of breath, dizziness, nausea, abdominal pain Also denies any headache, double or blurry vision, focal weakness Review of Systems Review of Systems: All systems reviewed & are unremarkable except as noted in Subjective Physical Exam Physical Exam: Physical Exam: Vitals signs as noted above General Appearance:Moderately built and nourished, no apparent distress Head: normocephalic, Atraumatic Eyes: normal inspection, EOMI Neck: supple, Trachea midline Respiratory/Chest: Normal breath sounds, CTA, No accessory muscle use Cardiovascular: S1, S2, No murmur Abdomen/GI:Soft, Non tender, Bowel sounds present Extremities/Musculoskeletal:normal inspection, no edema Neurologic/Psych:AAOX3, grossly no focal neurological deficits Skin: normal color, warm Results & Data Results & Data ([facility]) Vital Signs (Past 12 Hours) Vital Signs Pulse Resp BP Pulse Ox 10/01/21 15:00 90 20 98 10/01/21 15:00 130/92 10/01/21 14:00 105 H 10/01/21 14:00 145/99 H 10/01/21 13:00 91 H 17 95 10/01/21 13:00 159/114 H 10/01/21 12:00 125/96 10/01/21 11:00 102 H 17 10/01/21 11:00 149/88 H 10/01/21 10:00 108 H 17 10/01/21 10:00 138/81 10/01/21 09:21 105 H 15 10/01/21 09:21 149/84 H 10/01/21 08:00 93 H 16 95 10/01/21 08:00 145/86 H 10/01/21 07:00 92 H 15 92 10/01/21 07:00 132/77 10/01/21 06:00 90 13 95 10/01/21 06:00 130/81 10/01/21 05:00 113 H 17 95 10/01/21 05:00 118/65 Laboratory Results Short CBC 09/30/21 10/01/21 Range/Units 21:18 05:17 WBC 6.87 4.74 L (4.8-10.8) K/ul Hgb 14.3 12.6 L (14.0-18.0) g/dl Hct 38.2 L 33.2 L (40.1-51.0) % Plt Count 264 202 (130-400) K/uL BMP 09/30/21 09/30/21 10/01/21 21:18 23:35 05:17 Sodium 124 L 127 L 130 L Potassium 3.4 L 4.1 D Chloride 86 L 94 L Carbon Dioxide 24 23 BUN 6 5 L Creatinine 0.76 0.92 Glucose 85 75 Calcium 9.8 9.6 10/01/21 12:38 Sodium 129 L Potassium Chloride Carbon Dioxide BUN Creatinine Glucose Calcium Liver Function 09/30/21 10/01/21 Range/Units 21:18 05:17 Total Bilirubin 1.1 H 1.4 H (0.2-1.0) mg/dl AST 52 H 42 H (13-39) U/L ALT 72 H 58 H (7-52) U/L Alkaline Phosphatase 54 45 (34-104) U/L Albumin 4.6 4.4 (3.4-5.0) gm/dl Urine 09/30/21 Range/Units 21:18 Urine Color Yellow Urine Appearance Clear (Clear) Urine pH 6.5 (4.5-7.5) Ur Specific [place] 1.004 (1.000-1.030) Urine Protein Negative (Negative) Urine Glucose (UA) Negative (Negative)
[2021-10-01] MEDS: CETIRIZINE HCL 10 MG TABLET PO SCH (21:50)
[2021-10-01] MEDS: LORazepam 0.5 MG TAB PO PRN (23:35)
[2021-10-02] MEDS: GABAPENTIN 600 MG TAB PO SCH ×3 (03:05→22:19)
[2021-10-02] MEDS: LEVOTHYROXINE SODIUM 100 MCG TABLET PO SCH (05:57)
[2021-10-02] MEDS: ENOXAPARIN INJ 40 MG/0.4 ML SYR SQ SCH (07:53)
[2021-10-02] MEDS: MULTIVITAMIN TAB PO SCH (07:54)
[2021-10-02] MEDS: THIAMINE HCL 100 MG TAB PO SCH (07:54)
[2021-10-02] MEDS: lisinopril 20 MG TAB PO SCH (07:54)
[2021-10-02] MEDS: FOLIC ACID 1 MG TAB PO SCH (07:54)
[2021-10-02] MEDS: FAMOTIDINE 20 MG TAB PO SCH ×2 (07:55→22:20)
[2021-10-02 08:56] LABS: BUN Creatinine Ratio 9.1 (10-20); Calcium 10.3 mg/dl (8.5-10.1); Creatinine Clr Calc Pharmacy 136.4 ml/min; Est GFR (African American) 121.9 ml/min; Est GFR (Non-African American) 105.2 ml/min
--- NOTE | 2021-10-02 15:49 | Hospitalist Progress Note ---
Date of Service October 02, 2021 Assessment & Plan (1) Acute hyponatremia: Plan: Alcohol abuse disorder Presents with visual hallucinations likely secondary to alcohol withdrawal/Intoxication Admits to drinking vodka on daily basis Denies any symptoms suggestive of migraine --CT head:No acute intracranial abnormality. Counseled to quit drinking Continue on gabapentin protocol Continue thiamine, folic acid Monitor for alcohol withdrawal Acute hyponatremia Likely multifactorial: Alcohol use, polydipsia Sodium:127>129>133 Monitor sodium levels Hypertension Continue lisinopril GERD Continue home meds Mood disorder On Wellbutrin Hypothyroidism S/P thyroid surgery Elevated TSH, normal free T4 Continue levothyroxine Needs outpatient repeat thyroid function test Hypokalemia Replace as needed Ongoing tobacco abuse Counseled to quit DVT Px: Lovenox SQ Code status Full code Admission and Anticipated Discharge Date Admission Date: September 30, 2021 Subjective Patient is seen and examined at bedside Visual hallucinations improved but not resolved No new complaints Denies any chest pain, shortness of breath, dizziness, nausea, abdominal pain Review of Systems Review of Systems: All systems reviewed & are unremarkable except as noted in Subjective Physical Exam Physical Exam: Physical Exam: Vitals signs as noted above General Appearance:Moderately built and nourished, no apparent distress Head: normocephalic, Atraumatic Eyes: normal inspection, EOMI Neck: supple, Trachea midline Respiratory/Chest: Normal breath sounds, CTA, No accessory muscle use Cardiovascular: S1, S2, No murmur Abdomen/GI:Soft, Non tender, Bowel sounds present Extremities/Musculoskeletal:normal inspection, no edema Neurologic/Psych:AAOX3, grossly no focal neurological deficits Skin: normal color, warm Results & Data Results & Data ([facility]) Vital Signs (Past 12 Hours) Vital Signs Temp Pulse Pulse Resp BP Pulse Ox O2 Del Method 10/02/21 15:06 36.4 C L 76 18 142/92 H 97 Room Air 10/02/21 15:00 98 H 10/02/21 11:05 36.4 C L 82 18 122/87 96 Room Air 10/02/21 07:35 37.0 C 83 18 130/93 99 Room Air 10/02/21 07:16 79 Laboratory Results [facility] 10/02/21 07:38 Sodium 133 L Potassium 4.0 Chloride 96 L Carbon Dioxide 29 BUN 8 Creatinine 0.88 Glucose 95 Calcium 10.3 H
[2021-10-02] MEDS: CETIRIZINE HCL 10 MG TABLET PO SCH (22:20)
[2021-10-02] MEDS: MELATONIN 3 MG TAB PO PRN (23:06)
[2021-10-02] MEDS: LORazepam 0.5 MG TAB PO PRN (23:06)
[2021-10-03] MEDS: LEVOTHYROXINE SODIUM 100 MCG TABLET PO SCH (06:11)
[2021-10-03 07:49] LABS: Hematocrit (blood only) 36.1 % (40.1-51.0); Hemoglobin 13.3 g/dl (14.0-18.0); Mean Corpuscular Hemoglobin 39.3 pg (25.0-34.0); Mean Corpuscular Hgb Conc 36.8 g/dL (32.0-36.0); Mean Corpuscular Volume 106.8 fL (80.0-100.0); Mean Platelet Volume 9.2 fL (9.4-12.4); Platelet Count 199 K/uL (130-400); RDW Coefficient of Variation 11.4 % (11.5-14.5); RDW Standard Deviation 44.7 fL (36.4-46.3); Red Blood Count 3.38 M/uL (4.63-6.08); White Blood Count 5.79 K/ul (4.8-10.8)
[2021-10-03] MEDS: lisinopril 20 MG TAB PO SCH (08:20)
[2021-10-03] MEDS: MULTIVITAMIN TAB PO SCH (08:20)
[2021-10-03] MEDS: THIAMINE HCL 100 MG TAB PO SCH (08:21)
[2021-10-03] MEDS: GABAPENTIN 600 MG TAB PO SCH (08:21)
[2021-10-03] MEDS: FAMOTIDINE 20 MG TAB PO SCH ×2 (08:21→22:46)
[2021-10-03] MEDS: FOLIC ACID 1 MG TAB PO SCH (08:21)
[2021-10-03] MEDS: buPROPion XL 150 MG TABCR PO SCH (08:21)
[2021-10-03] MEDS: ENOXAPARIN INJ 40 MG/0.4 ML SYR SQ SCH (08:22)
[2021-10-03 08:28] LABS: Albumin Level 4.6 gm/dl (3.4-5.0); BUN Creatinine Ratio 6.7 (10-20); Bilirubin Direct 0.2 mg/dl (0-0.2); Bilirubin,Total 1.3 mg/dl (0.2-1.0); Calcium 10.4 mg/dl (8.5-10.1); Creatinine Clr Calc Pharmacy 134.9 ml/min; Est GFR (African American) 121.4 ml/min; Est GFR (Non-African American) 104.7 ml/min; Magnesium 1.8 mg/dl (1.7-2.4); Potassium 4.3 mmol/L (3.5-5.1); Total Protein 7.2 gm/dl (6.0-8.3)
[2021-10-03] MEDS ORDERED: WELLBUTRIN 150 MG PO SCH (09:00)
[2021-10-03] MEDS: SODIUM CHLORIDE 0.9% 1000ML 1,000 ML IV SCH ×2 (09:37→22:46)
--- NOTE | 2021-10-03 11:46 | Hospitalist Progress Note ---
Date of Service October 03, 2021 Assessment & Plan (1) Acute hyponatremia: Plan: Alcohol abuse disorder Presents with visual hallucinations likely secondary to alcohol withdrawal/Intoxication Admits to drinking vodka on daily basis Denies any symptoms suggestive of migraine --CT head:No acute intracranial abnormality. Counseled to quit drinking Continue on gabapentin protocol Continue thiamine, folic acid Monitor for alcohol withdrawal Acute hyponatremia Likely multifactorial: Alcohol use, polydipsia Sodium:127>129>133->131 Monitor sodium levels Hypercalcemia- mild, possibly some dehydration. Not on meds that could cause hypercalcemia. Will start on some IVF. If doesn't improve, will send hypercalcemia work up. Hypertension- BP well controlled, continue lisinopril GERD- continue home meds Mood disorder- On Wellbutrin Hypothyroidism S/P thyroid surgery Elevated TSH, normal free T4 Continue levothyroxine Needs outpatient repeat thyroid function test Ongoing tobacco abuse- Recommended quitting DVT Px:Lovenox SQ Dispo- Anticipate discharge tomorrow if labs improved. Admission and Anticipated Discharge Date Admission Date: September 30, 2021 Subjective Feels better today. No hallucination since yesterday. No other issues. No fever, chills, chest pain, shortness of breath, N/V. Denies any withdrawal symptoms. Discussed about his labs Physical Exam Physical Exam: General: Lying comfortably in bed, not in distress, on room air HEENT: EOMI, CLAUDIA, MMM Chest: Clear breath sounds bilaterally, no wheezes or crackles CVS: Regular rate and rhythm, normal heart sounds, no murmur Abdomen: Soft, non tender, not distended, normal bowel sounds Neuro: Awake, alert, oriented, conversing well, non focal Extremities: No cyanosis, clubbing or edema Results & Data Results & Data ([facility]) Vital Signs (Past 12 Hours) Vital Signs Temp Pulse Pulse Resp BP BP Pulse Ox 10/03/21 08:55 37.0 C 83 18 111/75 98 10/03/21 07:23 81 10/03/21 02:38 75 10/03/21 02:18 36.9 C 115 H 18 117/82 97 O2 Del Method 10/03/21 08:55 Room Air 10/03/21 07:23 10/03/21 02:38 10/03/21 02:18 Room Air Laboratory Results Short CBC 10/03/21 Range/Units 07:29 WBC 5.79 (4.8-10.8) K/ul Hgb 13.3 L (14.0-18.0) g/dl Hct 36.1 L (40.1-51.0) % Plt Count 199 (130-400) K/uL BMP 10/03/21 07:29 Sodium 131 L Potassium 4.3 Chloride 95 L Carbon Dioxide 29 BUN 6 Creatinine 0.89 Glucose 99 Calcium 10.4 H Liver Function 10/03/21 Range/Units 07:29 Total Bilirubin 1.3 H (0.2-1.0) mg/dl Direct Bilirubin 0.2 (0-0.2) mg/dl AST 33 (13-39) U/L ALT 48 (7-52) U/L Alkaline Phosphatase 49 (34-104) U/L Albumin 4.6 (3.4-5.0) gm/dl Medications Administered Current Inpatient Medications Bupropion HCl (Bupropion Xl 150 Mg Tabcr) 150 mg PO DAILY [facility] Stop: 11/02/21 08:59 Last Admin: 10/03/21 08:21 Dose: 150 mg Cetirizine HCl (Cetirizine Hcl 10 Mg Tablet) 10 mg PO HS [facility] Stop: 10/31/21 20:59 Last Admin: 10/02/21 22:20 Dose: 10 mg Enoxaparin Sodium (Enoxaparin Inj 40 Mg/0.4 Ml Syr) 40 mg SQ QAM [facility] Stop: 10/31/21 08:59 Last Admin: 10/03/21 08:22 Dose: 40 mg Famotidine (Famotidine 20 Mg Tab) 20 mg PO BID [facility] Stop: 10/31/21 08:59 Last Admin: 10/03/21 08:21 Dose: 20 mg Folic Acid (Folic Acid 1 Mg Tab) 1 mg PO QAM [facility] Stop: 10/31/21 08:59 Last Admin: 10/03/21 08:21 Dose: 1 mg Gabapentin (Gabapentin 600 Mg Tab) 600 mg PO Q24H [facility] Stop: 10/04/21 09:01 Last Admin: 10/02/21 07:54 Dose: 600 mg Lorazepam 1 mg/ Syringe 1 mls @ 2 mls/min IV UD PRN; Protocol PRN Reason: EtOH Withdrawal AWSS Score 6,7 Stop: 10/30/21 23:10 Lorazepam 2 mg/ Syringe 2 mls @ 2 mls/min IV UD PRN; Protocol PRN Reason: EtOH Withdrawal AWSS Score 8,9 Stop: 10/30/21 23:10 Lorazepam 3 mg/ Syringe 3 mls @ 2 mls/min IV ONCE PRN; Protocol PRN Reason: EtOH Withdrawal AWSS Score 10 & above Promethazine HCl 12.5 mg/ (Sodium Chloride) 50.5 mls @ 202 mls/hr IV Q6H PRN PRN Reason: Nausea And Vomiting Stop: 10/31/21 00:59 Sodium Chloride (Nss 1000ml) 1,000 mls @ 80 mls/hr IV .[id number] [facility] Stop: 11/02/21 09:29 Last Admin: 10/03/21 09:37 Dose: 80 mls/hr Levothyroxine Sodium (Levothyroxine Sodium 100 Mcg Tablet) 100 mcg PO DAILYBB [facility] Stop: 10/31/21 06:39 Last Admin: 10/03/21 06:11 Dose: 100 mcg Lisinopril (Lisinopril 20 Mg Tab) 20 mg PO DAILY [facility] Stop: 11/01/21 08:59 Last Admin: 10/03/21 08:20 Dose: 20 mg Lorazepam (Lorazepam 0.5 Mg Tab) 0.5 mg PO HS PRN PRN Reason: insomnia Stop: 10/30/21 23:03 Last Admin: 10/02/21 23:06 Dose: 0.5 mg Melatonin (Melatonin 3 Mg Tab) 3 mg PO HS PRN PRN Reason: Sleep Stop: 10/30/21 23:03 Last Admin: 10/02/21 23:06 Dose: 3 mg Multivitamins (Multivitamin Tab) 1 tab PO QAM [facility] Stop: 10/31/21 08:59 Last Admin: 10/03/21 08:20 Dose: 1 tab Oxycodone HCl (Oxycodone Hcl Ir 5 Mg Tab (Immediate Release)) 5 mg PO Q4H PRN PRN Reason: Pain Stop: 10/15/21 00:59 Thiamine HCl (Thiamine Hcl 100 Mg Tab) 100 mg PO QAM [facility] Stop: 10/31/21 08:59 Last Admin: 10/03/21 08:21 Dose: 100 mg
[2021-10-03] MEDS: CETIRIZINE HCL 10 MG TABLET PO SCH (22:45)
[2021-10-03] MEDS: LORazepam 0.5 MG TAB PO PRN (22:46)
[2021-10-03] MEDS: MELATONIN 3 MG TAB PO PRN (22:46)
[2021-10-04] MEDS: LEVOTHYROXINE SODIUM 100 MCG TABLET PO SCH (05:28)
[2021-10-04 06:37] LABS: BUN Creatinine Ratio 8.1 (10-20); Calcium 9.8 mg/dl (8.5-10.1); Creatinine Clr Calc Pharmacy 139.6 ml/min; Est GFR (African American) 123.1 ml/min; Est GFR (Non-African American) 106.2 ml/min; Phosphorus 5.2 mg/dl (2.5-4.9); Potassium 4.1 mmol/L (3.5-5.1)
[2021-10-04] MEDS: buPROPion XL 150 MG TABCR PO SCH (08:30)
[2021-10-04] MEDS: THIAMINE HCL 100 MG TAB PO SCH (08:31)
[2021-10-04] MEDS: lisinopril 20 MG TAB PO SCH (08:31)
[2021-10-04] MEDS: FAMOTIDINE 20 MG TAB PO SCH (08:31)
[2021-10-04] MEDS: MULTIVITAMIN TAB PO SCH (08:31)
[2021-10-04] MEDS: ENOXAPARIN INJ 40 MG/0.4 ML SYR SQ SCH (08:31)
[2021-10-04] MEDS: FOLIC ACID 1 MG TAB PO SCH (08:31)
[2021-10-04] MEDS ORDERED: GABAPENTIN 600 MG TAB PO SCH (09:00)
--- NOTE | 2021-10-04 11:32 | Discharge Summary ---
Date of Service October 04, 2021 Admission HPI Per Admitting Provider History obtained from patient, family, and records. Medical history significant for hypertension, GERD, anxiety/mood disorder, post surgical hypothyroidism, ongoing tobacco/alcohol abuse. 2 days ago, patient noted worsening visual hallucinations. Patient describes seeing black lines, 'squigglies' people walking around. No headache, no chest pain, no SOB. No prior history of alcohol withdrawal seizures. Poor appetite the last few days. Patient brought by brother to emergency room for evaluation. IV Ativan and banana bag administered for alcohol withdrawal. Patient feeling much better after initial ER intervention. Medical History as above Surgical History : Dental surgery, thyroid lobectomy, LASIK eye surgery, palatal repair Family History : Lung cancer, breast cancer, heart disease Personal/Social history : Cigar use, alcohol abuse, computer networker Admission Exam Per Admitting Provider GENERAL: Comfortable, slightly anxious, no respiratory distress SKIN: Normal color, warm HEENT: [place] palpebral conjunctivae, no ptosis, dry buccal mucosa NECK : Supple, no tenderness CHEST : CTA, no tenderness HEART : RRR, no obvious murmurs ABDOMEN: Some distention, nontender EXTREMITIES : No LE swelling/tenderness, no other conspicuous deformities noted NEUROLOGIC : Coherent, no facial asymmetry, no other gross focality Principal Diagnosis Hyponatremia, alcohol withdrawal, vision issues Discharge Exam General: Lying comfortably in bed, not in distress, on room air HEENT: EOMI, CLAUDIA, MMM Chest: Clear breath sounds bilaterally, no wheezes or crackles CVS: Regular rate and rhythm, normal heart sounds, no murmur Abdomen: Soft, non tender, not distended, normal bowel sounds Neuro: Awake, alert, oriented, conversing well, non focal Extremities: No cyanosis, clubbing or edema Discharge Data Allergies Allergy/AdvReac Type Severity Reaction Status Date / Time No Known Allergies Allergy Mild Unverified 06/06/07 19:11 Consultations 09/30/21 22:22 ED Decision to Admit Stat Ordered Studies 09/30/21 20:40 CT head/brain wo con Stat Laboratory Results WBC 5.79 K/ul (4.8-10.8) 10/03/21 07:29 RBC 3.38 M/uL (4.63-6.08) L 10/03/21 07:29 Hgb 13.3 g/dl (14.0-18.0) L 10/03/21 07:29 Hct 36.1 % (40.1-51.0) L 10/03/21 07:29 MCV 106.8 fL (80.0-100.0) H 10/03/21 07:29 MCH 39.3 pg (25.0-34.0) H 10/03/21 07:29 MCHC 36.8 g/dL (32.0-36.0) H 10/03/21 07:29 RDW Std Deviation 44.7 fL (36.4-46.3) 10/03/21 07: RDW Coeff of Kirk 11.4 % (11.5-14.5) L 10/03/21 07:29 Plt Count 199 K/uL (130-400) 10/03/21 07:29 MPV 9.2 fL (9.4-12.4) L 10/03/21 07:29 Immature Gran % (Auto) 0.2 % 10/01/21 05:17 Neut % (Auto) 52.4 % 10/01/21 05:17 Lymph % (Auto) 33.5 % 10/01/21 05:17 [place] % (Auto) 11.0 % 10/01/21 05:17 Eos % (Auto) 2.1 % 10/01/21 05:17 Baso % (Auto) 0.8 % 10/01/21 05:17 Neut # (Auto) 2.48 K/uL (1.4-6.5) 10/01/21 05:17 Lymph # (Auto) 1.59 K/uL (1.2-3.4) 10/01/21 05:17 [place] # (Auto) 0.52 K/uL (0.24-0.82) 10/01/21 05:17 Eos # (Auto) 0.10 K/uL (0-0.50) 10/01/21 05:17 Baso # (Auto) 0.04 K/uL (0-0.2) 10/01/21 05:17 Immature Gran # (Auto) 0.01 K/uL (0.00-0.02) 10/01/21 05:17 Neutrophils % (Manual) 69 % 09/30/21 21:18 Lymphocytes % (Manual) 23 % 09/30/21 21:18 Monocytes % (Manual) 4 % 09/30/21 21:18 Eosinophils % (Manual) 2 % 09/30/21 21:18 Basophils % (Manual) 2 % 09/30/21 21:18 Metamyelocytes % (Man) 1 % 09/30/21 21:18 Neutrophils # (Manual) 4.74 K/uL (1.4-6.5) 09/30/21 21:18 Total Absolute Neuts 4.74 K/uL (1.4-6.5) 09/30/21 21:18 Lymphocytes # (Manual) 1.58 K/uL (1.2-3.4) 09/30/21 21:18 Total Abs Lymphocytes 1.58 K/uL (1.2-3.4) 09/30/21 21:18 Monocytes # (Manual) 0.27 K/uL (0.24-0.82) 09/30/21 21:18 Eosinophils # (Manual) 0.14 K/uL (0-0.50) 09/30/21 21:18 Basophils # (Manual) 0.14 K/uL (0-0.2) 09/30/21 21:18 Metamyelocytes # (Man) 0.07 K/uL (0-0) H 09/30/21 21:18 PT 10.8 Seconds (9.0-12.0) 09/30/21 21:18 INR 1.0 (0.9-1.1) 09/30/21 21:18 Sodium 135 mmol/L (136-145) L 10/04/21 05:46 Potassium 4.1 mmol/L (3.5-5.1) 10/04/21 05:46 Chloride 101 mmol/L (98-107) 10/04/21 05:46 Carbon Dioxide 26 mmol/L (21-32) 10/04/21 05:46 Anion Gap 8 (3-11) 10/04/21 05:46 BUN 7 mg/dl (6-23) 10/04/21 05:46 Creatinine 0.86 mg/dl (0.6-1.4) 10/04/21 05:46 Est Cr Clr Drug Dosing 139.6 ml/min 10/04/21 05:46 Est GFR ( Amer) 123.1 ml/min 10/04/21 05:46 Est GFR (Non-Af Amer) 106.2 ml/min 10/04/21 05:46 BUN/Creatinine Ratio 8.1 (10-20) L 10/04/21 05:46 Glucose 94 mg/dl (70-99(Fasting)) 10/04/21 05:46 Osmolality 311 mOsm/kg (280-300) H 09/30/21 21:18 Lactate 1.5 mmol/L (0.4-2.0) 10/01/21 05:17 Calcium 9.8 mg/dl (8.5-10.1) 10/04/21 05:46 Phosphorus 5.2 mg/dl (2.5-4.9) H 10/04/21 05:46 Magnesium 1.8 mg/dl (1.7-2.4) 10/03/21 07:29 Total Bilirubin 1.3 mg/dl (0.2-1.0) H 10/03/21 07:29 Direct Bilirubin 0.2 mg/dl (0-0.2) 10/03/21 07:29 AST 33 U/L (13-39) 10/03/21 07:29 ALT 48 U/L (7-52) 10/03/21 07:29 Alkaline Phosphatase 49 U/L (34-104) 10/03/21 07:29 Ammonia 20.0 umol/L (18-72) 09/30/21 21:18 Troponin I High Sens 2.8 pg/ml (0-20) 09/30/21 21:18 Total Protein 7.2 gm/dl (6.0-8.3) 10/03/21 07:29 Albumin 4.6 gm/dl (3.4-5.0) 10/03/21 07:29 Globulin 2.4 gm/dl (2.5-4.0) L 10/01/21 05:17 Albumin/Globulin Ratio 1.8 (0.9-2) 10/01/21 05:17 TSH 6.367 uIu/ml (0.300-4.500) H 09/30/21 21:18 Free T4 1.31 ng/dl (0.61-1.60) 09/30/21 21:18 Urine Color Yellow 09/30/21 21:18 Urine Appearance Clear (Clear) 09/30/21 21:18 Urine pH 6.5 (4.5-7.5) 09/30/21 21:18 Ur Specific [place] 1.004 (1.000-1.030) 09/30/21 21:18 Urine Protein Negative (Negative) 09/30/21 21:18 Urine Glucose (UA) Negative (Negative) 09/30/21 21:18 Urine Ketones Trace (Negative) H 09/30/21 21:18 Urine Blood Negative (Negative) 09/30/21 21:18 Urine Nitrite Negative (Negative) 09/30/21 21:18 Urine Bilirubin Negative (Negative) 09/30/21 21:18 Urine Urobilinogen Negative (Negative) 09/30/21 21:18 Ur Leukocyte Esterase Negative (Negative) 09/30/21 21:18 Urine Osmolality 133 mOsm/kg (500-800) L 09/30/21 21:18 Ur Random Sodium 16 mmol/L 09/30/21 21:18 Salicylates < 3.0 mg/dl (3.0-30) L 09/30/21 21:18 Urine Opiates Screen Neg (Neg) 09/30/21 21:18 Ur Methadone, Qual Neg (Neg) 09/30/21 21:18 Acetaminophen < 3 ug/ml (10-30) L 09/30/21 21:18 Urine Barbiturates Neg (Neg) 09/30/21 21:18 Ur Phencyclidine (PCP) Neg (Neg) 09/30/21 21:18 U Amphetamin/Meth Scrn Neg (Neg) 09/30/21 21:18 MDMA (Ecstasy) Screen Neg (Neg) 09/30/21 21:18 U Benzodiazepines Scrn Neg (Neg) 09/30/21 21:18 Ur Cocaine Metabolite Neg (Neg) 09/30/21 21:18 U Marijuana (THC) Screen Neg (Neg) 09/30/21 21:18 Ethyl Alcohol mg/dL 215.9 mg/dl (<10.0) H 09/30/21 21:18 SARS-CoV-2, RNA, NAAT NEGATIVE (NEGATIVE) 09/30/21 23:[address] 09/30/21 20:40 CT SCAN OF THE BRAIN WITHOUT IV CONTRAST CLINICAL HISTORY: Hallucinations. COMPARISON STUDY: No priors. TECHNIQUE: Unenhanced axial CT scan of the brain is performed from the vertex to the skull base. A dose lowering technique was utilized adhering to the principles of ALARA. CT DOSE: 537.48 mGy.cm FINDINGS: Brain parenchyma: The brain parenchyma is normal in appearance. There is no hemorrhage, mass effect, or evidence of acute territorial ischemia by CT criteria. [place]-white matter differentiation is preserved. No extra-axial fluid collection is seen. Ventricles, sulci, cisterns: Normal in configuration. Intracranial vasculature: The visualized intracranial vasculature at the skull base is normal in appearance. Calvarium: Unremarkable. Sinuses and mastoids: The visualized paranasal sinuses are clear. The mastoid air cells are well pneumatized. Orbits: The bony orbits are grossly intact. IMPRESSION: No acute intracranial abnormality. ACT 112: Negative or not required by law. Electronically signed by: Enrique Velasquez M.D. 10/01/2021 7:16 AM Chest X-Ray 09/30/21 23:10 XR chest 1V portable HISTORY: 41 years-old Male hyponatremia COMPARISON: None TECHNIQUE: Portable AP view of the chest FINDINGS: Cardiac silhouette is upper limits of normal in size. No pneumothorax, pleural effusion, airspace consolidation or overt pulmonary edema. Bones of the chest appear grossly intact. IMPRESSION: No acute process. ACT 112: Negative or not required by law. The above report was generated using voice recognition software. It may contain grammatical, syntax or spelling errors. Electronically signed by: Stanley Miramontes M.D. 10/01/2021 7:41 AM Hospital Course (1) Acute hyponatremia: Alcohol abuse disorder Presents with visual hallucinations which is improved and intermittent- has appointment with ophthalmology today. Admits to drinking vodka on daily basis Denies any symptoms suggestive of migraine --CT head:No acute intracranial abnormality. Counseled to quit drinking S/p gabapentin protocol. No withdrawal signs or symptoms currently Continue thiamine, folic acid Acute hyponatremia- resolved Likely multifactorial: Alcohol use, polydipsia Sodium:127>129>133->131->135 Hypercalcemia- mild, possibly some dehydration. Resolved with IVF. Not on meds that could cause hypercalcemia. No need for hypercalcemia work up currently. Hypertension- BP well controlled, continue lisinopril GERD- continue home meds Mood disorder- On Wellbutrin Hypothyroidism S/P thyroid surgery Elevated TSH, normal free T4 Continue levothyroxine Needs outpatient repeat thyroid function test in 4-6 weeks Ongoing tobacco abuse- Recommended quitting Comfortable and stable for discharge home. He did not want to go to alcohol rehab. Recommended to stop drinking or at least cut down significantly. Total Time Total Time Spent Total Time Spent (In Minutes): 35 Discharge Plan Discharge Items Patient Disposition: Home - Self-Care Reason For Visit: HYPONATREMIA Discharge Diagnosis: Hyponatremia, visual hallucination, alcohol withdrawal Activity: Resume your previous activity Non-emergency contact: Primary Care Provider Call non-emergency contact if: you have any medication questions Follow-up/Referrals: Lamine Gan MD [Primary Care Provider] - (Date & Time 10/09/2021 3:20 PM Provider Lamine Gan MD Department [facility] ) Diet: Regular Addtl Attending Provider Instructions: Please quit drinking alcohol. Follow up with eye doctor for your vision issues. Pending Studies at Discharge: No Stand-Alone Forms: My [facility], Smoking Cessation Medications and DC Order Prescriptions: New thiamine HCl (vitamin B1) 100 mg Tablet 100 mg PO QAM Qty: 30 0RF folic acid 1 mg Tablet 1 mg PO QAM Qty: 30 0RF Continued Zantac-360 (famotidine) 1 tab PO BID cetirizine 10 mg PO HS levothyroxine 100 mcg PO DAILY lisinopril 20 mg PO DAILY trazodone 50 mg PO HS PRN (Reason: Insomnia) Wellbutrin XL 150 mg PO DAILY Discharge Orders: Discharge Order (Routine); Ordered 10/04/21 Ordered By: Danish Schroeder Admission Data Admit Date/Time: 09/30/21 23:02 Attending Provider: Danish Schroeder Admit Provider: Manny Smith Primary Care Provider: Lamine Gan Other Providers: Manny Smith Other Interventions: Discharge Summary Assessment (RN) Last Done: 10/04/21 08:48
== END 2021-10-04 09:30 | disposition home or self-care (01) | DRG 897 ==
LOC: ED 20:19 → SUATTDRO 23:02 → EDINP 23:02 → 2N 10-01 00:54